=== PATIENT | male | born 1995 | race Caucasian/White ===

== ENCOUNTER 2017-06-20 22:00 | Emergency (ER) | payer OTHER ==
[~2017-06-20] VITALS: Ht 188 cm; Wt 90.1 kg
[2017-06-20 22:04] VITALS: BP 124/94
[2017-06-20] MEDS ORDERED: SODIUM CHLORIDE 0.9% 1,000ML IVBOLUS ONE (22:30)
[2017-06-20] MEDS ORDERED: FAMOTIDINE 20 MG/2 ML IVP ONE (22:30)
[2017-06-20] MEDS ORDERED: ONDANSETRON 2MG/ML, 2ML IVPush ONE (22:30)
[2017-06-20] MEDS ORDERED: SODIUM CHLORIDE FLUSH 10ML SYR IVF ONE (22:30)
[2017-06-20] MEDS ORDERED: ONDANSETRON 2MG/ML, 2ML ONE (22:37)
[2017-06-20] MEDS ORDERED: FAMOTIDINE 20 MG/2 ML ONE (22:37)
[2017-06-20] MEDS ORDERED: MOME13HF INH (22:56)
[2017-06-20] MEDS ORDERED: OMEP10CA4 PO (22:56)
[2017-06-20] MEDS ORDERED: CETI10TA24 PO (22:56)
[2017-06-20] MEDS ORDERED: MONT10TA6 PO (22:56)
[2017-06-20] MEDS ORDERED: PROPOFOL 10 MG/ML, 20ML ONE (23:14)
[2017-06-20] MEDS ORDERED: PROPOFOL 10 MG/ML, 20ML IVPush ONE (23:30)
== END 2017-06-21 00:41 | disposition home or self-care (01) ==
LOC: ED 22:57
DX: T18.128A Food in esophagus causing other injury, initial encounter (principal); J45.909 Unspecified asthma, uncomplicated; X58.XXXA Exposure to other specified factors, initial encounter; Y93.89 Activity, other specified; Y92.89 Other specified places as the place of occurrence of the external cause; Y99.8 Other external cause status
CPT/HCPCS: 43247; 96361; 96374; 96375; 99152; 99153; 99285; J2405; J7030; S0028

== ENCOUNTER 2017-12-31 23:43 | Emergency (ER) | payer OTHER ==
[~2017-12-31] VITALS: Ht 188 cm; Wt 86.3 kg
[~2017-12-31 23:43] MED LIST: CETI10TA24 PO; MOME13HF INH; MONT10TA6 PO; OMEP10CA4 PO
[2018-01-01] MEDS ORDERED: SODIUM CHLORIDE FLUSH 10ML SYR IVF ONE (01:00)
[2018-01-01] MEDS ORDERED: PROPOFOL 10 MG/ML, 20ML IVPush ONE (01:00)
[2018-01-01] MEDS ORDERED: PROPOFOL 10 MG/ML, 20ML ONE (01:28)
[2018-01-01 02:45] VITALS: BP 120/66
== END 2018-01-01 02:48 | disposition home or self-care (01) ==
LOC: ED 01-01 01:55
DX: T18.128A Food in esophagus causing other injury, initial encounter (principal); J45.909 Unspecified asthma, uncomplicated; Z91.018 Allergy to other foods; X58.XXXA Exposure to other specified factors, initial encounter; Y93.89 Activity, other specified; Y92.89 Other specified places as the place of occurrence of the external cause; Y99.8 Other external cause status
CPT/HCPCS: 99152; 99285

== ENCOUNTER 2018-01-20 06:44 | Emergency (ER) | payer OTHER ==
[~2018-01-20] VITALS: Ht 190.5 cm; Wt 87.4 kg
[2018-01-20 06:44] VITALS: BP 130/76
[2018-01-20] MEDS ORDERED: HYDROcodone/APAP 5/325 TABLET ONE (07:20)
[2018-01-20] MEDS ORDERED: HYDROcodone/APAP 5/325 TABLET PO ONE (07:30)
== END 2018-01-20 10:14 | disposition home or self-care (01) ==
LOC: ED 09:11
DX: S90.01XA Contusion of right ankle, initial encounter (principal); J45.909 Unspecified asthma, uncomplicated; W18.39XA Other fall on same level, initial encounter; Y93.55 Activity, bike riding; Y92.098 Other place in other non-institutional residence as the place of occurrence of the external cause; Y99.8 Other external cause status
CPT/HCPCS: 99284